=== PATIENT | female | born 1985 | race African-American/Black ===

== ENCOUNTER 2018-10-19 13:06 | Inpatient (IN) | payer OTHER ==
[2018-10-19 14:23] VITALS: BMI 20.5
--- NOTE | 2018-10-19 16:25 | HP ---
CIWA Score Nausea/Vomitin-Mild Nausea/No Vomiting Muscle Tremors: 1-None Visible, but [place] Anxiety: 4-Mod. Anxious/Guarded Agitation: 0-Normal Activity Paroxysmal Sweats: 1-Minimal Palms Moist Orientation: 1-Uncertain about Date Tacttile Disturbances: 0-None Auditory Disturbances: 2-Mild Harshness/Frighten Visual Disturbances: 3-Moderate Sensitivity Headache: 3-Moderate CIWA-Ar Total Score: 16 - Admission Criteria OASAS Guidelines: Admission for Medically Managed Detox: Requires at least one of the followin. CIWA greater than 12 2. Seizures within the past 24 hours 3. Delirium tremens within the past 24 hours 4. Hallucinations within the past 24 hours 5. Acute intervention needed for co occurring medical disorder 6. Acute intervention needed for co occurring psychiatric disorder 7. Severe withdrawal that cannot be handled at a lower level of care (continued vomiting, continued diarrhea, abnormal vital signs) requiring intravenous medication and/or fluids 8. Admission ROS [facility] - HPI Allergies/Adverse Reactions: Allergies Allergy/AdvReac Type Severity Reaction Status Date / Time No Known Allergies Allergy Verified 10/19/18 14:15 History of Present Illness: pt here requesting detox from etoh use , reports several beers and 5 pints liquor / day in the past several months , reports blackouts and falls while intoxicated, denies seizures, current symptoms as above , SAMI 0.251 . Pt is poor historian , falls asleep frequently during interview, awakened by verbal stimuli PMHX/PSHX : denies Psych hx : depression , anxiety reports meds : Seroquel, Zoloft, did not bring meds SHx : lives w/ room mate , unemployed, states lost job 2/2 etoh use, no children upt neg . Exam Limitations: Clinical Condition, Intoxication - Ebola screening Have you traveled outside of the country in the last 21 days: No Have you had contact with anyone from an Ebola affected area: No Do you have a fever: No - Review of Systems Constitutional: See HPI EENT: reports: See HPI Respiratory: reports: No Symptoms reported Cardiac: reports: No Symptoms Reported GI: reports: No Symptoms Reported : reports: No Symptoms Reported Musculoskeletal: reports: No Symptoms Reported Integumentary: reports: No Symptoms Reported Neuro: reports: See HPI, Headache Endocrine: reports: No Symptoms Reported Psychiatric: reports: Orientated x3, Anxious, Disorientated Patient History - Smoking Cessation Smoking history: Smoker current status UNK - Substances abused Alcohol Substance route: Oral Frequency: Daily Amount used: 2 Pint- Vodka, 2- Beers Age of first use: 11 Date of last use: 10/19/18 Family Disease History - Family Disease History Family History: Unable to Obtain Admission Physical Exam S - Physical General Appearance: Yes: Moderate Distress, Alcohol on Breath, Intoxicated, Irritable, Anxious HEENTM: Yes: EOMI, Hearing grossly Normal, Normocephalic, Normal Voice Respiratory: Yes: Chest Non-Tender, Lungs Clear, Normal Breath Sounds Neck: Yes: No masses,lesions,Nodules, Trachea in good position Cardiology: Yes: Regular Rhythm, Regular Rate, S1, S2 Abdominal: Yes: Non Tender, Soft Back: Yes: Normal Inspection Musculoskeletal: Yes: Other (pt resting in bed , unable to assess) Extremities: Yes: Other (pt resting in bed , unable to assess) Neurological: Yes: Motor Strength 5/5, Depressed Affect Integumentary: Yes: Warm, Other (reports bruising " not from this " declines exam) - Diagnostic (1) Alcohol intoxication Current Visit: Yes Status: Acute Qualifiers: Complication of substance-induced condition: uncomplicated Qualified Code(s ): F10.920 - Alcohol use, unspecified with intoxication, uncomplicated (2) Alcohol abuse Current Visit: Yes Status: Acute Breathalyzer - Breathalyzer Breathalyzer: 0.251 Urine Drug Screen - Test Device Lot number: [id number] Expiration date: 05/13/20 - Control Is test valid?: Yes - Results Drug screen NEGATIVE: Yes Inpatient Rehab Admission - Rehab Decision to Admit Inpatient rehab admission?: No
[2018-10-19] MEDS ORDERED: MAGNESIUM CITRATE 300 ML BOTTLE PO PRN (16:46)
[2018-10-19] MEDS ORDERED: MELATONIN 5 MG TABLETS PO PRN (16:46)
[2018-10-19] MEDS ORDERED: IBUPROFEN 400 MG TABLET (FP) PO PRN (16:46)
[2018-10-19] MEDS ORDERED: MAGNESIUM HYDROX 2400MG/30ML ORAL SUSPENSION 30 ML CUP PO PRN (16:46)
[2018-10-19] MEDS ORDERED: METHOCARBAMOL 500 MG TABLET PO PRN (16:46)
[2018-10-19] MEDS ORDERED: hydrOXYzine PAMOATE 25 MG CAPSULE (FP) PO PRN (16:46)
[2018-10-19] MEDS ORDERED: MAG HYDROX/AL HYDROX/SIMETH 30 ML UNIT-DOSE CUP PO PRN (16:46)
[2018-10-19] MEDS ORDERED: DICYCLOMINE HCL 10 MG CAPSULE PO PRN (16:46)
[2018-10-19] MEDS ORDERED: chlordiazePOXIDE HCL 10 MG CAPSULE PO PRN (16:46)
[2018-10-19] MEDS ORDERED: ACETAMINOPHEN 325 MG TABLET (FP) PO PRN ×2 (16:46)
[2018-10-19] MEDS ORDERED: MENTHOL/PHENOL 1 EACH UD MM PRN (16:46)
[2018-10-19] MEDS: chlordiazePOXIDE HCL 25 MG CAPSULE PO SCH (22:26)
[2018-10-19] MEDS: THIAMINE HCL 100 MG TABLET (FP) PO SCH (22:27)
[2018-10-20] MEDS: chlordiazePOXIDE HCL 25 MG CAPSULE PO SCH ×2 (05:59→14:29)
[2018-10-20 09:52] LABS: ALBUMIN 3.3 g/dl (3.4-5.0); BILIRUBIN,TOTAL 0.2 mg/dL (0.2-1); CALCIUM 9.3 mg/dL (8.5-10.1); CREATININE 0.5 mg/dL (0.55-1.3); POTASSIUM 3.8 mmol/L (3.5-5.1); TOT PROT 7.2 g/dl (6.4-8.2)
[2018-10-20] MEDS: PRENATAL VITAMINS W/ FOLIC ACID TABLET (FP) PO SCH (10:11)
[2018-10-20 10:40] LABS: HEMATOCRIT 38.9 % (32.4-45.2); HEMOGLOBIN 12.7 GM/dL (10.7-15.3); MCH 31.8 pg (25.7-33.7); MCHC 32.7 g/dl (32.0-36.0); MEAN CELL VOLUME 97.4 fl (80-96); MEAN PLT VOLUME 8.6 fl (7.5-11.1); PLATELET COUNT 366 K/MM3 (134-434); RBC 3.99 M/mm3 (3.60-5.2); RDW 16.7 % (11.6-15.6); WHITE BLOOD COUNT 4.8 K/mm3 (4.0-10.0)
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
--- NOTE | 2018-10-20 12:14 | PN ---
S CIWA - CIWA Score Nausea/Vomitin-No Nausea/No Vomiting Muscle Tremors: 3 Anxiety: 3 Agitation: 3 Paroxysmal Sweats: 2 Orientation: 0-Oriented Tacttile Disturbances: 0-None Auditory Disturbances: 0-None Visual Disturbances: 0-None Headache: 0-None Present CIWA-Ar Total Score: 11 S Progress Note (SOAP) Subjective: sweats last night chills headache interrupted sleep Objective: 10/20/18 12:13 Vital Signs Temperature 98.1 F 10/20/18 09:25 Pulse Rate 100 H 10/20/18 09:25 Respiratory Rate 18 10/20/18 09:25 Blood Pressure 104/64 10/20/18 09:25 O2 Sat by Pulse Oximetry (%) Laboratory Tests 10/19/18 10/20/18 10/20/18 15:11 07:00 07:00 WBC 4.8 RBC 3.99 Hgb 12.7 Hct 38.9 MCV 97.4 H MCH 31.8 MCHC 32.7 RDW 16.7 H Plt Count 366 MPV 8.6 Sodium 134 L Potassium 3.8 Chloride 100 Carbon Dioxide 29 Anion Gap 6 L BUN 13 Creatinine 0.5 L Est GFR (CKD-EPI)AfAm 147.38 Est GFR (CKD-EPI)NonAf 127.16 Random Glucose 68 L Calcium 9.3 Total Bilirubin 0.2 AST 42 H ALT 57 Alkaline Phosphatase 73 Total Protein 7.2 Albumin 3.3 L POC Urine HCG, Qual Negative labs noted no further testing required aaox3 ambulating no acute distress Assessment: 10/20/18 12:13 withdrawal sx Plan: continue detox increase fluids tylenol or motrin prn
[2018-10-20] MEDS: SERTRALINE HCL 50 MG TABLET (FP) PO SCH (14:29)
[2018-10-20] MEDS ORDERED: QUEtiapine FUMARATE 100 MG TABLET (FP) PO SCH (22:00)
[2018-10-20] MEDS: chlordiazePOXIDE 5 MG CAPSULE PO SCH (22:19)
[2018-10-20] MEDS: QUEtiapine FUMARATE 100 MG TABLET (FP) PO SCH (22:19)
[2018-10-20] MEDS: THIAMINE HCL 100 MG TABLET (FP) PO SCH (22:19)
[2018-10-21] MEDS: chlordiazePOXIDE 5 MG CAPSULE PO SCH ×2 (05:33→13:36)
[2018-10-21] MEDS: SERTRALINE HCL 50 MG TABLET (FP) PO SCH (10:10)
[2018-10-21] MEDS: PRENATAL VITAMINS W/ FOLIC ACID TABLET (FP) PO SCH (10:10)
--- NOTE | 2018-10-21 13:57 | PN ---
[facility] CIWA - CIWA Score Nausea/Vomitin-No Nausea/No Vomiting Muscle Tremors: 3 Anxiety: 2 Agitation: 2 Paroxysmal Sweats: 2 Orientation: 0-Oriented Tacttile Disturbances: 0-None Auditory Disturbances: 0-None Visual Disturbances: 0-None Headache: 0-None Present CIWA-Ar Total Score: 9 BHS Progress Note (SOAP) Subjective: headache sweats interrupted sleep Objective: 10/21/18 13:56 Vital Signs Temperature 98.2 F 10/21/18 10:00 Pulse Rate 78 10/21/18 10:00 Respiratory Rate 16 10/21/18 10:00 Blood Pressure 103/57 L 10/21/18 10:00 O2 Sat by Pulse Oximetry (%) Laboratory Tests 10/19/18 10/20/18 10/20/18 15:11 07:00 07:00 WBC 4.8 RBC 3.99 Hgb 12.7 Hct 38.9 MCV 97.4 H MCH 31.8 MCHC 32.7 RDW 16.7 H Plt Count 366 MPV 8.6 Sodium 134 L Potassium 3.8 Chloride 100 Carbon Dioxide 29 Anion Gap 6 L BUN 13 Creatinine 0.5 L Est GFR (CKD-EPI)AfAm 147.38 Est GFR (CKD-EPI)NonAf 127.16 Random Glucose 68 L Calcium 9.3 Total Bilirubin 0.2 AST 42 H ALT 57 Alkaline Phosphatase 73 Total Protein 7.2 Albumin 3.3 L POC Urine HCG, Qual Negative RPR Titer HIV 1&2 Antibody Screen HIV P24 Antigen 10/20/18 10/20/18 07:00 07:00 WBC RBC Hgb Hct MCV MCH MCHC RDW Plt Count MPV Sodium Potassium Chloride Carbon Dioxide Anion Gap BUN Creatinine Est GFR (CKD-EPI)AfAm Est GFR (CKD-EPI)NonAf Random Glucose Calcium Total Bilirubin AST ALT Alkaline Phosphatase Total Protein Albumin POC Urine HCG, Qual RPR Titer Nonreactive HIV 1&2 Antibody Screen Negative HIV P24 Antigen Negative aaox3 ambulating no acute distress Assessment: 10/21/18 13:57 withdrawal sx Plan: continue detox increase fluids imitrex x one
[2018-10-21] MEDS ORDERED: SUMAtriptan SUCCINATE 25 MG TABLET PO ONE (14:45)
[2018-10-21] MEDS ORDERED: chlordiazePOXIDE HCL 10 MG CAPSULE PO PRN (21:00)
[2018-10-21] MEDS: QUEtiapine FUMARATE 100 MG TABLET (FP) PO SCH (22:34)
[2018-10-21] MEDS: THIAMINE HCL 100 MG TABLET (FP) PO SCH (22:34)
[2018-10-21] MEDS: chlordiazePOXIDE HCL 10 MG CAPSULE PO SCH (22:35)
[2018-10-22] MEDS: chlordiazePOXIDE HCL 10 MG CAPSULE PO SCH (06:29)
--- NOTE | 2018-10-22 09:27 | DS ---
[facility] Detox Discharge Summary Admission Date: 10/19/18 Discharge Date: 10/22/18 (Pt is discharged to [facility] ) - History Present History: Alcohol Dependence Additional Comments: Pt is medically cleared and is discharged to [facility] [address], [place], [place] for continued treatment. Pt is AOX3 and in no respiratory distress. Pertinent Past History: H/O alcohol use disorder. - Physical Exam Results Vital Signs: Vital Signs Temperature 98.4 F 10/22/18 08:34 Pulse Rate 76 10/22/18 08:34 Respiratory Rate 16 10/22/18 08:34 Blood Pressure 125/61 10/22/18 08:34 O2 Sat by Pulse Oximetry (%) Lab Results WBC 4.8 K/mm3 (4.0-10.0) 10/20/18 07:00 RBC 3.99 M/mm3 (3.60-5.2) 10/20/18 07:00 Hgb 12.7 GM/dL (10.7-15.3) 10/20/18 07:00 Hct 38.9 % (32.4-45.2) 10/20/18 07:00 MCV 97.4 fl (80-96) H 10/20/18 07:00 MCHC 32.7 g/dl (32.0-36.0) 10/20/18 07:00 RDW 16.7 % (11.6-15.6) H 10/20/18 07:00 Plt Count 366 K/MM3 (134-434) 10/20/18 07:00 Sodium 134 mmol/L (136-145) L 10/20/18 07:00 Potassium 3.8 mmol/L (3.5-5.1) 10/20/18 07:00 Chloride 100 mmol/L (98-107) 10/20/18 07:00 Carbon Dioxide 29 mmol/L (21-32) 10/20/18 07:00 Anion Gap 6 MMOL/L (8-16) L 10/20/18 07:00 BUN 13 mg/dL (7-18) 10/20/18 07:00 Creatinine 0.5 mg/dL (0.55-1.3) L 10/20/18 07:00 Random Glucose 68 mg/dL (74-106) L 10/20/18 07:00 Calcium 9.3 mg/dL (8.5-10.1) 10/20/18 07:00 Labs reviewed. Pertinent Admission Physical Exam Findings: withdrawal symptoms. - Treatment Hospital Course: Detox Protocol Followed, Detoxed Safely, Responded well, Discharged Condition Good, Rehab Referral Accepted Patient has Accepted a Rehab Referral to: [facility] - Medication Discharge Medications: Ambulatory Orders Quetiapine Fumarate [Seroquel] 200 mg PO HS 10/19/18 Sertraline HCl [Zoloft] 200 mg PO DAILY 10/19/18 - Diagnosis (1) Alcohol dependence with uncomplicated withdrawal Status: Acute (2) Nicotine dependence Status: Chronic - AMA Did Patient Leave Against Medical Advice: No
[2018-10-22 10:00] VITALS: BP 110/59; PULSE 67; TEMP 98.1
== END 2018-10-22 09:28 | disposition home or self-care (01) | DRG 775 ==
LOC: YASAS 13:06 → Y6N 17:36
PROVIDERS: ADMIT Surgery; ATTEND Surgery
PROC: HZ2ZZZZ Detoxification Services for Substance Abuse Treatment (ICD-10-PCS; principal; 2018-10-19)
DX: F10.230 Alcohol dependence with withdrawal, uncomplicated (principal); F10.220 Alcohol dependence with intoxication, uncomplicated; F10.24 Alcohol dependence with alcohol-induced mood disorder; F10.282 Alcohol dependence with alcohol-induced sleep disorder; F17.210 Nicotine dependence, cigarettes, uncomplicated; F32.9 Major depressive disorder, single episode, unspecified
CPT/HCPCS: 36415; 80053; 81025; 85027; 86593; 87389